=== PATIENT | female | born 1955 | race Caucasian/White ===

== ENCOUNTER 2019-02-08 16:40 | Observation (INO) | payer OTHER ==
[~2019-02-08] VITALS: Ht 162.6 cm; Wt 88.6 kg
--- NOTE | ~2019-02-08 | HEMODYNAMI ---
PATIENT:CHASE LOBO MEDICAL RECORD: [id number] : 55 LOCATION:[facility] D.[id number] [facility]# [id number] ADMISSION DATE: 02/08/19 Generatedon:02/09/201910:41 Patient name: CHASE LOBO Patient #: [id number] SSN: [id number] : 1955 Date of study: 02/09/2019 Page: Of Hemodynamic Procedure Report Patient Data Patient Demographics Procedure consent was obtained First Name: CHASE Gender: Female Last Name: YAMIL : 1955 Patient #: [id number] Age: 63 year(s) Race: SSN: [id number] Additional ID: [id number] Contact details [address]: [address] [place] [address] rd State: [place] City: [place] Zip code: [address] Past Medical History Allergies Allergen Reaction Date Comments Reported Other allergy 02/09/2019 Madi HERNÁNDEZ Admission Admission Data Admission Date: 02/08/2019 Admission Time: 17:58 Arrival Date: 02/09/2019 Arrival Time: 0:00 Admit Source: Other Insurance Payor: Private Room #: [id number] health insurance [facility] #: [id number] Height (in.): 64 BSA: 1.94 (m2) Height (cm.): 162.56 BMI: 33.54 (kg/m2) Weight (lbs.): 195.4 Weight (kg.): 88.63 Lab Results Lab Result Date: 02/09/2019 Lab Result Time: 0:00 Biochemistry Name Units Result Min Max BUN mg/dl 12 --(-*--)-- 7 18 Creatinine mg/dl 0.9 --(-*--)-- 0.6 1.3 eGFR ml/min 67.00728 *-(----)-- 90 120 NONAFRICAN CBC Name Units Result Min Max Hemoglobin g/dl 14.7 --(-*--)-- 13.5 17.5 Procedure Procedure Types Cath Procedure Diagnostic Procedure C [facility] w/Coronaries Sedation Charges Moderate Sedation up to 15 minutes PCI Procedure Coronary Stent Coronary Stent Initial Procedure Description Procedure Date Procedure Date: 02/09/2019 Procedure Start Time: 10:16 Procedure End Time: 10:40 Procedure Staff Name Function Austin Kenny MD Performing Physician Kenisha Steel RT Monitor Saad Ocasio RN Nurse Nneka Sanchez RT Scrub Procedure Data Cath Procedure Fluoroscopy Diagnostic fluoroscopy Total fluoroscopy Time: 7.3 time: 7.3 min min Diagnostic fluoroscopy Total fluoroscopy dose: 688 dose: 688 mGy mGy Contrast Material Contrast Material Type Amount (ml) Isovue 300 149 Entry Location Entry Primary Successful Side Size Upsize Upsize Entry Closure Jane ccessful Closure Location (Fr) 1 (Fr) 2 (Fr) Remarks Device Remarks Radial Right 6 Fr Mechanical artery Short Compression Estimated blood loss: 5 ml Diagnostic catheters Device Type Used For End Catheter Placement DIAGNOSTIC Kerrick 110cm 5 Multi-vessel Fr catheter ([id number]) Angiography Procedure Complications No complications Procedure Medications Medication Administration Route Dosage 0.9% NaCl I.V. 100 ml/hr Oxygen etCO2 Nasal cannula 2 l/min Heparin Flush Bag added to field 2 bags (1000units/500ml NS) Lidocaine 2% added to field 20 Radial Cocktail added to field 1 syringe (Verapamil 2mg/Nitro 400mcg/Heparin 1500units) Versed I.V. 2 mg Fentanyl I.V. 100 mcg Radial Cocktail I.A. 1 syringe (Verapamil 2mg/Nitro 400mcg/Heparin 1500units) Heparin Bolus I.V. 4000 units Fentanyl I.V. 50 mcg Plavix P.O. 75 mg Versed I.V. 1 mg Hemodynamics Rest BSA: 1.94 (m2) HGB: 14.7 (g/dl) O2 Consumption: Estimated: 187.26 (ml/min) O2 Co nsumption indexed: Estimated:96.53 (ml/min/m) Heart Rate: 77 (bpm) Pressure Samples Time Site Value (mmHg) Purpose Heart Use Rate(bpm) 10:20 LV 123/4,7 Snapshot 85 Snapshots Pre Cath Intra NCS Post Cath Vital Signs Time Heart Resp SPO2 etCO2 NIBP (mmHg) Rhythm Pain Status Sedation Rate (ipm) (%) (mmHg) Level (bpm) 9:51:18 75 13 100 35.9 154/84(133) NSR 5 (11) , 10(A) Very distressing 9:55:38 71 11 94 41.1 145/79(119) NSR 5 (11) , 10(A) Very distressing 9:59:54 71 11 95 44.1 140/82(112) NSR 5 (11) , 10(A) Very distressing 10:04:04 73 12 94 23.9 136/77(106) NSR 5 (11) , 10(A) Very distressing 10:08:22 69 12 97 33.7 150/66(106) NSR 5 (11) , 10(A) Very distressing 10:12:42 71 12 96 41.1 148/71(98) NSR 5 (11) , 10(A) Very distressing 10:16:56 67 12 94 17.9 121/74(100) NSR 0 (11) , No 9(A) pain 10:21:59 72 12 93 0.7 134/64(89) NSR 0 (11) , No 9(A) pain 10:27:09 69 18 94 26.9 132/72(110) NSR 5 (11) , 10(A) Very distressing 10:31:23 81 10 95 44.8 134/77(117) NSR 5 (11) , 10(A) Very distressing 10:35:37 82 15 84 42.6 139/73(105) NSR 5 (11) , 10(A) Very distressing 10:39:55 79 13 96 29.2 142/71(93) NSR 5 (11) , 10(A) Very distressing Medications Time Medication Route Dose Verified Delivered Reason Not es Effectiveness by by 9:53:40 0.9% NaCl I.V. 100 Saad Saad Per physician ml/hr Amarjit Ocasio RN RN 9:53:50 Oxygen etCO2 2 l/min Saad Saad for low 02 sats Nasal Anabeligan Amarjit cannula RN RN 9:54:11 Heparin Flush added 2 bags Saad Saad used for Bag to Amarjit Ocasio procedure (1000units/500ml RN RN NS) 9:54:22 Lidocaine 2% added 20ml Saad Saad for local to vial Lorigan Anabeligan anesthetic field GRIFFIN RN 9:54:34 Radial Cocktail added 1 Saad Saad used for (Verapamil to syringe Amarjit Ocasio procedure 2mg/Nitro field RN RN 400mcg/Heparin 1500units) 10:14:28 Versed I.V. 2 mg Saad Saad for sedation Amarjit Ocasio RN RN 10:14:38 Fentanyl I.V. 100 mcg Saad Saad for sedation Amarjit Ocasio RN RN 10:19:06 Radial Cocktail I.A. 1 Saad Austin for (Verapamil syringe Amarjit Kenny MD vasodilation 2mg/Nitro RN 400mcg/Heparin 1500units) 10:19:24 Versed I.V. 1 mg Saad Saad for sedation Amarjit Ocasio RN RN 10:27:51 Heparin Bolus I.V. 4000 Saad Saad for units Amarjit Ocasio anticoagulation RN RN 10:37:05 Fentanyl I.V. 50 mcg Saad Saad for chest pain Amarjit Ocasio RN RN 10:37:18 Plavix P.O. 75 mg Saad Saad for Amarjit Ocasio antiplatelet RN RN therapy Procedure Log Time Note 9:21:01 Diagnostic Cath Status : Elective 9:24:27 Informed consent obtained and on chart 9:40:30 Arrival Date: 02/09/2019 12:00:00 AM 9:41:13 Admit Source: Other 9:41:16 Insurance Payor : Private health insurance 9:41:31 Patient Height : 64 inches 9:41:37 Patient Weight : 195.4 lbs 9:42:43 Lab Result : Hemoglobin 14.7 g/dl 9:42:43 Lab Result : eGFR NONAFRICAN 67.43601 ml/min 9:42:43 Lab Result : BUN 12 mg/dl 9:42:43 Lab Result : Creatinine 0.9 mg/dl 9:43:12 Procedure Status Urgent Heart Cath (IP). 9:43:17 Saad Ocasio RN sent for patient. Start room use. 9:43:19 Time tracking: Regular hours (M-F 7:00 - 5:00) 9:43:23 Plan of Care:Hemodynamics will remain stable., Cardiac rhythm will remain stable., Comfort level will be maintained., Respiratory function will remain adequate., Patient/ family verbilizes understanding of procedure., Procedure tolerated without complication., Recovers from procedure without complications.. 9:43:48 Patient received from PCU to [facility] 3 Alert and oriented. Tansferred to table in Supine position. 9:43:58 Warm blankets applied, and mary hugger turned on for patient comfort. 9:43:58 Correct patient and procedure confirmed by team. 9:44:09 H&P Date Dictated: 02/08/2019 Within 30 days and on chart., H&P Addendum completed by physician on day of procedure. (MUST COMPLETE FOR ALL OUTPATIENTS). 9:44:11 Pre-procedure instructions explained to patient. 9:44:14 Family in patients room. 9:44:19 Patient NPO since Midnight. 9:44:37 Patient allergic to Other allergyPCN, Codeine 9:44:41 Is the patient allergic to Iodine/contrast media? No. 9:44:46 Was the patient premedicated? Yes 9:44:56 Is patient on blood thinner?Yes 9:45:00 ACC The patient was administered the following blood thiners within the last 24 hours: ACCAspirin, ACCPlavix 9:45:04 Patient diabetic? No. 9:45:11 Snore? Yes 9:45:13 Sleep apnea? No 9:45:25 Dentures? No ? 9:45:35 Patient pain scale 5/10 ?. 9:45:51 IV patent on arrival in right hand with 0.9% NaCl at KVO. 9:45:59 Lab results completed and on chart. 9:46:04 Right Radial & Right Groin area was prepped with chlora-prep and draped in sterile fashion 9:46:06 Alarms reviewed by R. N. 9:46:07 Sharps counted by scrub and verified by R.N. 9:46:12 Physician paged 9:46:41 Pre procedure: right dorsailis pedis pulse 2+ Normal; easily identifiable; not easily obliterated 9:46:46 Pre procedure: left dorsailis pedis pulse 2+ Normal; easily identifiable; not easily obliterated 9:48:54 Use device set Radial Dx or PCI 9:49:07 ECG and BP/O2 sat monitors applied to patient. 9:49:09 Vital chart was started 9:49:12 Baseline sample Acquired. 9:49:18 Rhythm: sinus rhythm 9:49:22 Full Disclosure recording started 9:53:40 0.9% NaCl 100 ml/hr I.V. was administered by Saad Ocasio RN; Per physician; 9:53:50 Oxygen 2 l/min etCO2 Nasal cannula was administered by Saad Ocasio RN; for low 02 sats; 9:54:11 Heparin Flush Bag (1000units/500ml NS) 2 bags added to field was administered by Saad Ocasio RN; used for procedure; 9:54:22 Lidocaine 2% 20ml vial added to field was administered by Saad Ocasio RN; for local anesthetic; 9:54:34 Radial Cocktail (Verapamil 2mg/Nitro 400mcg/Heparin 1500units) 1 syringe added to field was administered by Saad Ocasio RN; used for procedure; 10:03:16 Physician arrived 10:03:17 --------ALL STOP TIME OUT------ 10:03:17 Final Timeout: patient, procedure, and site verified with staff and physician. All members of the team are in agreement. 10:03:19 Right Radial & Right Groin site verified by team. 10:03:22 Fire Safety Assessment: A--An alcohol-based skin anteseptic being used preoperatively., C--Open oxygen or nitrous oxide is being used., D--An ESU, laser, or fiber-optic light is being used. 10:03:25 Physical assessment completed. ASA score P 2 - A patient with mild systemic disease as per Austin Kenny MD. 10:03:38 2) 60-89 Mildly reduced kidney function, and other findings (as for stage 1) point to kidney disease. 10:04:02 Maximum allowable contrast dose (3.7 X eGFR X 0.75)185 ml. 10:04:06 Sedation plan: IV Moderate Sedation Medication:Versed, Fentanyl 10:04:17 ACIST Syringe (54511) opened to sterile field. 10:04:18 Medline Cath Pack ([id number]) opened to sterile field. 10:04:18 Bag Decanter () opened to sterile field. 10:04:19 ACIST Hand Control (47478) opened to sterile field. 10:04:19 ACIST Manifold (82237) opened to sterile field. 10:04:19 Tegaderm 4 x 4 (1626W) opened to sterile field. 10:04:20 MBrace Wrist Support ([id number]) opened to sterile field. 10:04:24 SHEATH 6FR RAIN (8296237) opened to sterile field. 10:04:25 EMERALD Guide Wire (502-970) opened to sterile field. 10:12:44 Zero performed for pressure channel P1 10:14:28 Versed 2 mg I.V. was administered by Saad Ocasio RN; for sedation; 10:14:38 Fentanyl 100 mcg I.V. was administered by Saad Ocasio RN; for sedation; 10:16:46 Procedure started. 10:16:53 Local anesthetic to right radial artery with Lidocaine 2% by Austin Kenny MD.INITIAL ACCESS ONLY 10:18:48 A 6 Fr Short sheath was inserted into the Right Radial artery 10:18:56 A DIAGNOSTIC Kerrick 110cm 5 Fr catheter (859127) was advanced over the wire and used for Multi-vessel Angiography. 10:19:06 Radial Cocktail (Verapamil 2mg/Nitro 400mcg/Heparin 1500units) 1 syringe I.A. was administered by Austin Kenny MD; for vasodilation; 10:19:24 Versed 1 mg I.V. was administered by Saad Ocasio RN; for sedation; 10:20:53 LV hemodynamics recorded. 10:20:55 LV gram done using VILLANUEVA 10:20:57 Injector settings: Ml/sec: 5, Volume: 15, 10:21:03 EF : 60 % 10:22:26 LCA angiography performed. 10:22:30 Injector settings: Ml/sec: 3, Volume: 6, 10:23:34 RCA angiography performed. 10:23:42 Injector settings: Ml/sec: 3, Volume: 6, 10:23:45 ACCDominant side:Right 10:24:07 Catheter removed. 10:24:32 GUIDE 6FR XBLAD 3.5 catheter ([id number]) opened to sterile field. 10:24:32 INFLATOR Merit BasixCompak (IL9395) opened to sterile field. 10:24:33 CHOICE PT Floppy J 300cm guide wire ([id number]) opened to sterile field. 10:24:40 Proceeding to intervention. 10:24:46 6 Fr xblad 3.5 guide catheter was inserted over the wire 10:24:55 choice pt floppy wire advanced. 10:27:51 Heparin Bolus 4000 units I.V. was administered by Saad Ocasio RN; for anticoagulation; 10:27:52 Pre PCI Site: [place] mCirc has 90% stenosis. 10:27:52 ACC Pre-intervention ABAD Flow is 3. 10:29:53 Inflate balloon Inflation number: 1 A EMERGE OTW 2.0 x 12 balloon ([id number]) was prepped and advanced across the Mid CX 90, then inflated to 7 FREDY for 0:10 (min:sec) . 10:30:17 Inflation number: 2 The EMERGE OTW 2.0 x 12 balloon ([id number]) was reinflated across the Mid CX , to 7 FREDY for 0:10 (min:sec) . 10:31:33 Balloon removed over the wire. 10:34:24 Place stent Inflation Number: 3 A LUCIO RX 2.0 x 12 stent ([id number]) was prepped and advanced across the Mid CX 90. The stent was deployed at 11 FREDY for 0:10 (min:sec) . 10:36:23 Stent catheter was removed intact over wire. 10:36:23 Wire removed. 10:36:24 Guide catheter removed. 10:36:29 ACC Post-intervention ABAD Flow is 3. 10:36:36 Post PCI Site: [place] mCirc has 0% stenosis. 10:36:48 Sheath removed intact; hemostasis achieved with Mechanical Compression to the Right Radial artery. 10:36:54 TR BAND Standard ([id number]) opened to sterile field. 10:37:00 Procedure ended.(Physican Out) 10:37:05 Fentanyl 50 mcg I.V. was administered by Saad Ocasio RN; for chest pain; 10:37:18 Plavix 75 mg P.O. was administered by Saad Ocasio RN; for antiplatelet therapy; 10:37:40 Fluoroscopy time 07.30 minutes. 10:37:46 Fluoroscopy dose: 688 mGy 10:37:46 Flurop Dose total: 688 10:38:56 Dose Area Product 5948.42 mGy/cm. 10:39:16 Contrast amount:Isovue 300 149ml. 10:39:18 Sharps counted by scrub and verified by R.N. 10:39:21 [place] band inflated with 10cc of air. 10:39:23 Insertion/operative site no bleeding no hematoma. 10:39:29 Post right radial artery:stable 10:39:31 Post Procedure Pulses reassessed and unchanged 10:39:34 Post procedure rhythm: unchanged. 10:39:36 Estimated blood loss: 5 ml 10:39:38 Post procedure instruction explained to patient.Patient verbalizes understanding. 10:39:38 Patient needs reinforcement of post procedure teaching. 10:39:52 Procedure type changed to Cath procedure, Diagnostic procedure, LHC, LHC w/Coronaries, Sedation Charges, Moderate Sedation up to 15 minutes, PCI procedure, Coronary Stent, Coronary Stent Initial 10:39:54 Procedure and supply charges have been captured, reviewed, submitted and are correct. 10:39:59 Procedure Complication : No complications 10:40:01 Vital chart was stopped 10:40:02 See physician's report for complete and final results. 10:40:04 Report given to Pre/Post Procedure Room. 10:40:07 Procedure ended. 10:40:07 Full Disclosure recording stopped 10:40:14 Patient transfered to Pre/Post Procedure Room with Stretcher. 10:40:19 ACC-PCI Only Patient was given prescriptions, or instructed by Austin Kenny MD to start/continue the following medications upon discharge: Plavix 10:40:21 End room use (Document Last) Intervention Summary Intervention Notes Time ActionType Lesion and Equipment Used Action# Pressure Duration Attributes 10:29:53 Inflate Mid CX EMERGE OTW 2.0 1 7 00:10 balloon x 12 balloon ([id number]) 10:30:17 Reinflate Mid CX EMERGE OTW 2.0 2 7 00:10 balloon x 12 balloon ([id number]) 10:34:24 Place stent Mid CX LUCIO RX 2.0 x 3 11 00:10 12 stent ([id number]) Device Usage Item Name Manufacture Quantity Catalog Number Hospital Part Current M inimal Lot# / Charge Number Stock Stock Serial# Code ACIST Syringe Acist 1 85854 278178 021031 834983 2 0 (76276) Medical Dgimed Ortho Inc Medline Cath Medline 1 [id number] 354054 09380 928534 5 Pack ([id number]) Bag Decanter Microtek 1 741227 84088 546430 5 (2002S) Medical Inc. ACIST Hand Acist 1 93480 418053 167168 397245 5 Control Medical (46173) Systems Inc ACIST Manifold Acist 1 25617 057123 510974 777011 5 (33010) Medical Systems Inc Tegaderm 4 x 4 3M 1 1626W 793997 922565 052882 5 (1626W) MBrace Wrist Advanced 1 140-0250-00 314233 44417 086304 5 Support Vascular (186327846) Dynamics SHEATH 6FR Cardinal 1 1580240 628241 8021548 966523 5 RAIN (1539368) Health EMERALD Guide Cardinal 1 502-455 502628 687644 492869 5 Wire (502-638) Health DIAGNOSTIC Terumo 1 405013 847178 059737 116280 5 Kerrick 110cm 5 Fr catheter (363258) GUIDE 6FR Cardinal 1 04501377 259315 524568 100607 1 0 XBLAD 3.5 Health catheter (11531285) INFLATOR Merit Merit 1 NM1969 316870 407354 336132 1 5 Firebase (LF6033) CHOICE PT Leon 1 [id number] 896005 603969 469435 5 Floppy J 300cm Scientific guide wire (4602496L1) EMERGE OTW 2.0 Leon 1 [id number] 971972 404850 138635 5 13688869 x 12 balloon Scientific ([id number]) LUCIO RX 2.0 x Medtronic 1 [id number] 664456 2739660 879856 5 [id number] 12 stent ([id number]) TR BAND Terumo 1 [id number] 970453 865952 332552 4 0 Standard (LLE16III) Signature Audit [place] Stage Time Signature Unsigned Intra-Procedure 02/09/2019 Kenisha Steel 10:41:10 AM RT(R) Signatures Performing Physician : Signature : Austin Kenny MD Date : Time : Monitor : Kenisha Steel RT Signature : Date : Time : Nurse : Saad Lorigan Signature : RN Date : Time : [place] [id number] [place] [address]
[2019-02-08] MEDS ORDERED: LISINOPRIL2.5 MG (16:45)
[2019-02-08 17:16] LABS: BASOPHILS 1.1 % (0-2); HEMATOCRIT 42.1 % (36.0-48.0); HEMOGLOBIN 14.7 g/dL (12-16); IMMATURE GRANULOCYTES 0.2 % (0-5); LYMPHOCYTES 46.4 % (15-50); MCH 32.3 pg (26.0-34.0); MCHC 34.9 g/dL (31.0-37.0); MCV 92.5 fL (80.0-100.0); MEAN PLATELET VOLUME 10.3 fL (7.4-10.4); MONOCYTES 7.5 % (2-11); NEUTROPHILS 41.8 % (40-80); PLATELET COUNT 219 10x3/uL (130-400); RBC 4.55 10x6/uL (4.00-5.40); RDW 13.4 % (11.5-14.5); WBC 6.7 10x3/uL (4.8-10.8)
[2019-02-08 17:38] LABS: ALBUMIN 4.1 g/dL (3.4-5.0); ALKALINE PHOSPHATASE 50 U/L (46-116); ALT (SGPT) 38 U/L (10-68); BILIRUBIN - TOTAL 0.69 mg/dL (0.2-1.3); CALC OSMOLALITY 279 mosm/kg (275-300); CALCIUM 9.6 mg/dL (8.5-10.1); CARBON DIOXIDE 27.9 mmol/L (21.0-32.0); CHLORIDE - SERUM 103 mmol/L (98-107); CREATININE - SERUM 0.9 mg/dL (0.6-1.3); GLUCOSE 109 mg/dL (74-106); POTASSIUM - SERUM 4.4 mmol/L (3.5-5.1); PROTEIN - SERUM 7.4 g/dL (6.4-8.2); SODIUM 140 mmol/L (136-145); UREA NITROGEN 12 mg/dL (7-18); eGFR NON AFRICAN AMERICAN 67 mL/min (90-120)
[2019-02-08 17:51] LABS: CKMB 2.6 U/L (0.0-3.6); CREATINE KINASE 287 UL (21-215); PRO BNP 90 pg/mL (0-125)
[2019-02-08 18:02] LABS: TROPONIN-I < 0.017 ng/mL (0.000-0.060)
--- NOTE | 2019-02-08 18:58 | NUR ---
REPORT CALLED TO [facility] AT 1840.
--- NOTE | 2019-02-08 19:30 | NUR ---
PATIENT ARRIVED ON UNIT FROM ER. PATIENT IS ALERT AND ORIENTED. RESPIRATIONS ARE EVEN AND UNLABORED. NO S/S OF DISTRESS. NO C/O PAIN. CALL LIGHT WITHIN REACH. DENIES NEEDS. WILL CPOC.
[2019-02-08] MEDS ORDERED: ESTRACE 0.5 MG0.5 MG PO (21:20)
[2019-02-08] MEDS ORDERED: AMBIEN5 MG PO (21:21)
[2019-02-08] MEDS ORDERED: OMEPRAZOLE20 M1 PO (21:21)
[2019-02-08 21:27] VITALS: BP 132/60; Ht 162.6 cm; Wt 88.6 kg
[2019-02-09 04:00] VITALS: BP 90/46
--- NOTE | 2019-02-09 07:21 | NUR ---
REPORT RECEIVED. WILL CONTINUE WITH POC. PT CURRENTLY LYING SEMI FOWLERS. CALL LIGHT W/I REACH. PT IS AAO AND UP AD RNO. RR EVEN AND UNLABORED ON RA. R.HAND PIV IS SALINE LOCKED. PT IS NPO FOR STRESS TEST. PT DENIES ANY NEEDS. NO S/S OF DISTRESS NOTED. WILL CTM.
[2019-02-09 09:29] VITALS: BP 101/55
--- NOTE | 2019-02-09 09:38 | NUR ---
PREOP MEDICATIONS ADMINISTERED PER TRAINING INSTRUCTOR REQUEST. PT TRANSFERED TO TRAINING INSTRUCTOR. WILL CTM.
--- NOTE | 2019-02-09 10:50 | NUR ---
PT ARRIVED BY STRETCHER. PLACED ON MONITORS. ASSESSMENT COMPLETED. VSS. CALL LIGHT WITHIN REACH. FAMILY AT BEDSIDE.
[2019-02-09] MEDS ORDERED: PLAVIX75 MG PO (11:00)
[2019-02-09] MEDS ORDERED: BAYER CHEWABLE81 MG PO (11:00)
--- NOTE | 2019-02-09 11:05 | NUR ---
RIGHT WRIST BAND IN PLACE. NO BLEEDING/HEMATOMA NOTED. CAP REFILL < 3 SECS TO RIGHT HAND. VSS. CALL LIGHT WITHIN REACH. PT TOLERATING SIPS OF WATER. DENIES NAUSEA.
--- NOTE | 2019-02-09 11:10 | OP ---
PATIENT NAME: CHASE LOBO MEDICAL RECORD: [id number] :55 LOCATION:[facility] ADMISSION DATE:02/08/19 SURGEON: ZO MCCANN MD DATE OF OPERATION: 02/09/2019 PROCEDURES: 1. PTCA stent left circumflex. 2. Left heart catheterization. 3. Selective coronary angiography. 4. Left ventriculogram. INDICATION: Unstable angina and coronary artery disease. PROCEDURE IN DETAIL: After informed consent was obtained and after a detailed description of risks, benefits as well as alternative therapies, the patient elected to proceed with angiogram and angioplasty. The right radial area was prepped and draped in normal sterile fashion. Right radial artery was cannulated via modified Seldinger technique with placement of 6-Chinese sheath. All catheters exchanged through this sheath. FINDINGS: Left ventriculogram was performed in standard 30-degree VILLANUEVA view, reveals good cardiac wall motion throughout all segments. Overall ejection fraction estimated at 55%. SELECTIVE CORONARY ANGIOGRAPHY: 1. Left main showed no significant angiographic disease. 2. Left anterior descending has moderate irregularities, but no flow-limiting stenosis. 3. The left circumflex is a small vessel, but there is a 90% to 95% stenosis in the mid distal vessel. 4. Right coronary artery has mild irregularities, but no flow-limiting stenosis. PTCA STENT OF THE CIRCUMFLEX: The stent used was a 2.0 x 12 mm [place]. Result was 0% residual stenosis. OVERALL IMPRESSION: Successful percutaneous transluminal coronary angioplasty stent of the left circumflex going from 90% to 95% initial stenosis to 0% residual. TRANSINT:[id number] Voice Confirmation ID: [id number] DOCUMENT ID: [id number] ZO MCCANN MD at 1110 CC: [id number] DICTATION DATE: 02/09/19 1040 COOK FRUIT: 02/09/19 1048 [place] [address]
--- NOTE | 2019-02-09 11:10 | HP ---
PATIENT: CHASE PAYTON MEDICAL RECORD: [id number] ACCOUNT: [id number] LOCATION:[facility] : 55 ADMISSION DATE: 02/08/19 PCP: No PCP HISTORY AND PHYSICAL EXAMINATION DIAGNOSES: 1. Unstable angina. 2. Hypertension. HISTORY OF PRESENT ILLNESS: Mrs. Payton has no history of ischemic heart disease. She has a history of hypertension for which she is on lisinopril. For the past 3 weeks, she has been having increasing episodes of chest pain, chest discomfort compatible with angina; however, over the past 24 hours, it has turned into class IV angina with rest pain. It is a typical anginal discomfort with dull aching heavy sensation across the anterior chest, some radiation to her jaw. Her EKG; however, is with no acute ST-T abnormalities. She does continue to have the discomfort. PHYSICAL EXAMINATION: CONSTITUTIONAL/GENERAL APPEARANCE: Well nourished, well developed, appears stated age. EYES: Lids and conjunctivae noninjected. No discharge. No pallor. ENT: Lips within normal limit. No cyanosis. No pallor. NECK: Carotid arteries, bilateral normal upstroke. No bruits. No thrills. No jugular venous pressure or distention. CERVICAL LYMPH NODES: Nontender. Nonenlarged. THYROID: Not enlarged. No nodules. CARDIOVASCULAR: Precordial exam, nondisplaced. No heaves or pericardial thrills. Rate and rhythm, regular. Heart sounds, normal S1, normal S2. No S3, no gallop, no rub. Systolic murmur, not heard. Diastolic murmur, not heard. RESPIRATORY: Respiratory effort, unlabored. Normal curvature. No thoracic deformity. No chest wall tenderness. Percussion, resonant. Auscultation, clear. No wheezes, no rales, no rhonchi. ABDOMEN: Soft, nondistended, nontender. No abdominal pain, no vomiting and normal appetite. MUSCULOSKELETAL: No joint tenderness, normal gait, normal tone. SKIN: Warm and dry. OVERALL IMPRESSION: Chest pain compatible with unstable angina. She is hypertensive 164/82 with pulse of 70. At this time, we will add long-acting nitrates as well as calcium channel bairon to lower her blood pressure. There is no need for beta blockers, heart rate is already 60s and 70s. We will set her up for risk stratification with stress testing, Cardiolite imaging; however, if she continues to have the chest pain in an escalating fashion at rest, may change that to proceed with coronary angiography depending upon her pain with the medications. TRANSINT:[id number] Voice Confirmation ID: [id number] DOCUMENT ID: [id number] HISTORY AND PHYSICAL [id number] CHASE PAYTON JEFFREY MD at 1110 CC: [id number] DICTATION DATE: 02/08/191743 HEAVY EQUIPMENT MECHANIC: 02/08/19 1816 ADM IN [facility] [address] [id number]
--- NOTE | 2019-02-09 11:35 | NUR ---
RIGHT RADIAL TR BAND IN PLACE. NO BLEEDING/HEMATOMA NOTED. VSS. CALL LIGHT WITHIN REACH. NO NEEDS AT THIS TIME.
--- NOTE | 2019-02-09 12:03 | NUR ---
PT RESTING COMFORTABLY. VSS. RIGHT RADIAL TR BAND IN PLACE. NO BLEEDING/HEMATOMA NOTED. DENIES PAIN/NAUSEA. FAMILY AT BEDSIDE.
--- NOTE | 2019-02-09 12:31 | NUR ---
HEAD OF BED INC TO 30 DEGREES. TOLERATED WELL. PT MORE ALERT. VSS. RIGHT RADIAL TR BAND IN PLACE. NO BLEEDING/HEMATOMA NOTED. PT SET UP WITH SANDWICH TRAY AND DRINK. NO OTHER NEEDS AT THIS TIME. CALL LIGHT WITHIN REACH.
--- NOTE | 2019-02-09 13:03 | NUR ---
PT SITTING UP IN BED. VSS. RIGHT RADIAL TR BAND IN PLACE. NO BLEEDING/HEMATOMA NOTED. CALL LIGHT WITHIN REACH. NO NEEDS AT THIS TIME.
--- NOTE | 2019-02-09 13:47 | NUR ---
NO BLEEDING/HEMATOMA NOTED TO RIGHT WRIST TR BAND
--- NOTE | 2019-02-09 13:47 | NUR ---
4cc OF AIR REMOVED FROM TR BAND. TOLERATED WELL. VSS. CALL LIGHT WITHIN REACH. FAMILY AT BEDSIDE.
--- NOTE | 2019-02-09 13:57 | NUR ---
4cc OF AIR REMOVED FROM TR BAND. NO BLEEDING/HEMATOMA NOTED. CALL LIGHT WITHIN REACH. FAMILY AT BEDSIDE.
--- NOTE | 2019-02-09 14:15 | NUR ---
TR BAND REMOVED. DRESSING APPLIED. NO BLEEDING/HEMATOMA NOTED. PIV D/C'D WITH CATH TIP INTACT. PT INSTRUCTED TO GET DRESSED. FAMILY AT BEDSIDE TO ASSIST.
--- NOTE | 2019-02-09 14:20 | NUR ---
DISCUSSED DISCHAGE INSTRUCTIONS WITH PT AND PT'S FAMILY. THEY VOICED UNDERSTANDING.
--- NOTE | 2019-02-09 14:30 | NUR ---
RIGHT WRIST DRESSING C/D/I. NO S/S OF HEMATOMA NOTED. PT AMBULATED TO RESTROOM. VOIDED WITHOUT DIFFICULTY. TAKEN TO VEHICLE BY WHEELCHAIR. NO S/S OF DISTRESS NOTED. ALL BELONGINGS AND PAPERWORK IN HAND.
--- NOTE | 2019-02-12 10:47 | DS ---
PATIENT:CHASE PAYTON :55 MEDICAL RECORD: [id number] DISCHARGE SUMMARY ADMISSION DATE: 02/08/19 DISCHARGE DATE: 02/09/19 DISCHARGE DIAGNOSES: 1. Unstable angina. 2. Coronary artery disease. 3. Percutaneous transluminal coronary angioplasty stent of left circumflex this admission. HOSPITAL COURSE: Mrs. Payton presents with unstable anginal symptomatology, continued to have anginal pain despite maximal medical therapy, underwent cardiac catheterization revealing 90% to 95% stenosis of the left circumflex, underwent successful PTCA stent of the left circumflex. She had no further anginal chest discomfort, discharged home with the addition of aspirin and Plavix to her medical regimen. TRANSINT:[id number] Voice Confirmation ID: [id number] DOCUMENT ID: [id number] ZO MCCANN MD at 1047 CC: [id number] DICTATION DATE: 02/09/19 1038 TRANSPORTATION REFRIGERATION TECHNICIAN: 02/09/19 2348 DIS IN 02/09/19 [facility] [address] [place] [address]
== END 2019-02-09 14:30 | disposition home or self-care (01) ==
LOC: D.ER 16:40 → D.M2 17:58 → OBSVTIME 18:15 → D.CLR 02-09 10:58
PROVIDERS: Emergency Medicine; ADMIT Internal Medicine Interventional Cardiology; ATTEND Internal Medicine Interventional Cardiology
DX: I25.110 Atherosclerotic heart disease of native coronary artery with unstable angina pectoris (principal); I10 Essential (primary) hypertension

== ENCOUNTER 2019-05-31 08:41 | Outpatient (CLI) | payer OTHER ==
[~2019-05-31] VITALS: Ht 162.6 cm; Wt 90.9 kg
--- NOTE | ~2019-05-31 | HEMODYNAMI ---
PATIENT:CHASE LOBO MEDICAL RECORD: [id number] : 55 LOCATION:[facility] ADMISSION DATE: 05/31/19 Generatedon:05/31/201911:55 Patient name: CHASE LOBO Patient #: [id number] SSN: [id number] : 1955 Date of study: 05/31/2019 Page: Of Hemodynamic Procedure Report Patient Data Patient Demographics Procedure consent was obtained First Name: CHASE Gender: Female Last Name: YAMIL : 1955 Patient #: [id number] Age: 63 year(s) Race: SSN: [id number] Additional ID: [id number] Contact details Address: [address] [place] [address] rd State: [place] City: [place] Zip code: [address] Past Medical History Allergies Allergen Reaction Date Comments Reported Other allergy 02/09/2019 PCN, Codeine Other allergy 05/31/2019 PCN, CODEINE Admission Admission Data Admission Date: 05/31/2019 Admission Time: 8:41 Arrival Date: 05/31/2019 Arrival Time: 0:00 Admit Source: Emergency department Height (in.): 64 BSA: 1.96 (m2) Height (cm.): 162.56 BMI: 34.44 (kg/m2) Weight (lbs.): 200.62 Weight (kg.): 91 Lab Results Lab Result Date: 05/31/2019 Lab Result Time: 0:00 Biochemistry Name Units Result Min Max BUN mg/dl 12 --(-*--)-- 7 18 Creatinine mg/dl 1 --(--*-)-- 0.6 1.3 eGFR ml/min 59 *-(----)-- 90 120 NONAFRICAN CBC Name Units Result Min Max Hematocrit % 41.8 -*(----)-- 42 54 Hemoglobin g/dl 14.2 --(*---)-- 13.5 17.5 Procedure Procedure Types Cath Procedure Diagnostic Procedure [facility] w/[facility] Procedure Description Procedure Date Procedure Date: 05/31/2019 Procedure Start Time: 11:26 Procedure End Time: 11:46 Procedure Staff Name Function Zeinab Zuleta RN Nurse Austin Kenny MD Performing Physician Zohra Perez RT Scrub Xin Mcfarland RT Scrub Claudio Andrews RT Monitor Procedure Data Cath Procedure Fluoroscopy Diagnostic fluoroscopy Total fluoroscopy Time: 1.1 time: 1.1 min min Diagnostic fluoroscopy Total fluoroscopy dose: 373 dose: 373 mGy mGy Contrast Material Contrast Material Type Amount (ml) Isovue 370 53 Entry Location Entry Primary Successful Side Size Upsize Upsize Entry Closure Succes sful Closure Location (Fr) 1 (Fr) 2 (Fr) Remarks Device Remarks Femoral Right 5 Fr Exoseal artery Diagnostic catheters Device Type Used For End Catheter Placement MULTIPACK Pigtail 5 Fr LV Angiography catheter MULTIPACK JL 4.0 5Fr Left Coronary catheter Angiography MULTIPACK 3DRC 5Fr Right Coronary catheter Angiography Procedure Complications No complications Procedure Medications Medication Administration Route Dosage Oxygen etCO2 Nasal cannula 2 l/min Lidocaine 2% added to field 20 Heparin Flush Bag added to field 2 bags (1000units/500ml NS) Benadryl I.V. 50 mg 0.9% NaCl I.V. 100 ml/hr Versed I.V. 1 mg Fentanyl I.V. 50 mcg Versed I.V. 1 mg Fentanyl I.V. 50 mcg Versed I.V. 1 mg Versed I.V. 0.5 mg Radial Cocktail added to field 1 syringe (Verapamil 2mg/Nitro 400mcg/Heparin 1500units) Hemodynamics Rest BSA: 1.96 (m2) HGB: 14.2 (g/dl) O2 Consumption: Estimated: 187.07 (ml/min) O2 Co nsumption indexed: Estimated:95.44 (ml/min/m) Heart Rate: 74 (bpm) Snapshots Pre Cath Intra NCS Post Cath Vital Signs Time Heart Resp SPO2 etCO2 NIBP (mmHg) Rhythm Pain Sedation Rate (ipm) (%) (mmHg) Status Level (bpm) 11:18:39 77 18 98 0 174/92(126) NSR 0 (11) 10(A) , No pain 11:22:59 72 13 96 0 149/79(108) NSR 0 (11) 10(A) , No pain 11:27:09 72 15 98 0 151/84(130) NSR 0 (11) 10(A) , No pain 11:31:19 73 14 96 27.6 144/82(111) NSR 0 (11) 9(A) , No pain 11:35:26 73 15 97 0 160/81(117) NSR 0 (11) 9(A) , No pain 11:39:36 73 17 99 0 154/93(140) NSR 0 (11) 9(A) , No pain 11:43:48 78 14 98 36.6 151/82(113) NSR 0 (11) 10(A) , No pain Medications Time Medication Route Dose Verified Delivered Reason Notes Effectiveness by by 11:13:19 Benadryl I.V. 50 mg Austin Arriola used for benadryl Zoya Zuleta RN procedure not able to be given in ER due to non patent IV, started new IV lt bicep. 11:21:05 Oxygen etCO2 2 l/min Austin Arriola used for Nasal Zoya Zuleta RN procedure cannula 11:21:12 Lidocaine 2% added 20ml Austin Austin for local to vial Zoya Kenny MD anesthetic field 11:21:20 Heparin Flush added 2 bags Austinmurali Avila used for Bag to Zoya Kenny MD procedure (1000units/500ml field NS) 11:22:10 0.9% NaCl I.V. 100 Austin Buffie Per benadryl ml/hr Zoya Zuleta RN physician not able to be given in ER due to non patent IV, started new IV lt bicep. 11:22:25 Versed I.V. 1 mg Austin Arriola for Zoya Zuleta RN sedation 11:22:33 Fentanyl I.V. 50 mcg Austin Jefferyie for Zoya Zuleta RN sedation 11:23:26 Radial Cocktail added 1 Austinmurali Arriola used for wasted, (Verapamil to syringe Zoya Zuleta RN procedure not used 2mg/Nitro field 400mcg/Hepari 11:27:08 Versed I.V. 1 mg Austin Jefferyie for Zoya Zuleta RN sedation 11:27:12 Fentanyl I.V. 50 mcg Austin Arriola for Zoya Zuleta RN sedation 11:38:51 Versed I.V. 1 mg Austin Arriola for Zoya Zuleta RN sedation 11:42:24 Versed I.V. 0.5 mg Austin Arriola for Zoya Zuleta RN sedation Procedure Log Time Note 10:49:51 Informed consent obtained and on chart 10:50:59 Procedure Status Urgent Heart Cath (IP). 10:51:02 Claudio Andrews RT(R) sent for patient. Start room use. 10:51:04 Time tracking: Regular hours (M-F 7:00 - 5:00) 10:51:08 Plan of Care:Hemodynamics will remain stable., Cardiac rhythm will remain stable., Comfort level will be maintained., Respiratory function will remain adequate., Patient/ family verbilizes understanding of procedure., Procedure tolerated without complication., Recovers from procedure without complications.. 10:51:14 H&P Date Dictated: 05/31/2019 New H&P dictated by physician.. 10:51:27 Patient allergic to Other allergyPCN, CODEINE 10:51:58 Lab Result : Hemoglobin 14.2 g/dl 10:51:58 Lab Result : Hematocrit 41.8 % 10:51:58 Lab Result : eGFR NONAFRICAN 59 ml/min 10:51:58 Lab Result : BUN 12 mg/dl 10:51:58 Lab Result : Creatinine 1 mg/dl 10:52:06 Patient Weight : 200.62 lbs 10:52:09 Patient Height : 64 inches 10:52:15 Arrival Date: 05/31/2019 12:00:00 AM 10:52:17 Admit Source: Emergency department 11:01:21 Patient received from ED to CCL 1 Alert and oriented. Tansferred to table in Supine position. 11:01:23 Correct patient and procedure confirmed by team. 11:01:23 Warm blankets applied, and mary hugger turned on for patient comfort. 11:01:24 ECG and BP/O2 sat monitors applied to patient. 11:04:37 Vital chart was started 11:04:38 Baseline sample Acquired. 11:04:42 Rhythm: sinus rhythm 11:04:44 Pre-op teaching completed and patient verbalized understanding. 11:04:44 Pre-procedure instructions explained to patient. 11:04:51 Family in waiting room. 11:04:54 Patient NPO since Midnight. 11:05:32 Is the patient allergic to Iodine/contrast media? No. 11:06:32 Maximum allowable contrast dose (3.7 X eGFR X 0.75)163.725 ml. 11:06:40 Risk of Mortality: 0.1 11:06:44 Risk of blood transfusion: 0.2 11:06:48 Risk of SHERRY: 0.8 11:06:59 Is patient on blood thinner?Yes 11:07:03 ACC The patient was administered the following blood thiners within the last 24 hours: ACCPlavix 11:07:07 Patient diabetic? No. 11:07:16 ----Pre-sedation anethsthesia assessment.---- 11:07:19 Previous problem with sedation/anesthesia? No ? 11:07:21 Snore? Yes 11:07:22 Sleep apnea? No 11:07:24 Deviated septum? No 11:07:26 Opens mouth fully? Yes 11:07:27 Sticks out tongue? Yes 11:07:30 Airway obstruction? No ? 11:07:32 Dentures? No ? 11:07:37 Pre procedure: right dorsailis pedis pulse 1+ Palpable, but thready & weak; easily obliterated 11:07:41 Patient pain scale 0/10 ?. 11:07:57 Right groin area was prepped with chlora-prep and draped in sterile fashion 11:07:58 Alarms reviewed by R. N. 11:07:59 Sharps counted by scrub and verified by R.N. 11:10:16 IV started by Zeinab Zuleta RN inLeft upper arm with a 22 gauge IV catheter with 0.9% NaCl at KVO. 11:13:19 Benadryl 50 mg I.V. was administered by Zeinab Zuleta RN; used for procedure; benadryl not able to be given in ER due to non patent IV, started new IV lt bicep. Verbal order read back and verified. 11:14:11 Physician arrived 11:14:12 --------ALL STOP TIME OUT------ 11:14:13 Final Timeout: patient, procedure, and site verified with staff and physician. All members of the team are in agreement. 11:14:14 Right groin site verified by team. 11:14:18 Fire Safety Assessment: A--An alcohol-based skin anteseptic being used preoperatively., C--Open oxygen or nitrous oxide is being used., D--An ESU, laser, or fiber-optic light is being used. 11:14:22 Physical assessment completed. ASA score P 2 - A patient with mild systemic disease as per Austin Kenny MD. 11:14:41 3a) 45-59 Moderately reduced kidney function. 11:14:45 Sedation plan: IV Moderate Sedation Medication:Versed, Fentanyl 11:21:05 Oxygen 2 l/min etCO2 Nasal cannula was administered by Zeinab Zuleta RN; used for procedure; Verbal order read back and verified. 11:21:12 Lidocaine 2% 20ml vial added to field was administered by Austin Kenny MD; for local anesthetic; Verbal order read back and verified. 11:21:20 Heparin Flush Bag (1000units/500ml NS) 2 bags added to field was administered by Austin Kenny MD; used for procedure; Verbal order read back and verified. 11:22:10 0.9% NaCl 100 ml/hr I.V. was administered by Zeinab Zuleta RN; Per physician; benadryl not able to be given in ER due to non patent IV, started new IV lt bicep. Verbal order read back and verified. 11:22:25 Versed 1 mg I.V. was administered by Zeinab Zuleta RN; for sedation; Verbal order read back and verified. 11:22:33 Fentanyl 50 mcg I.V. was administered by Zeinab Zuleta RN; for sedation; Verbal order read back and verified. 11:23:26 Radial Cocktail (Verapamil 2mg/Nitro 400mcg/Heparin 1500units) 1 syringe added to field was administered by Zeinab Zuleta RN; used for procedure; wasted, not used Verbal order read back and verified. 11:26:16 Use device set Radial Dx or PCI 11:26:17 ACIST Syringe (64191) opened to sterile field. 11:26:18 ACIST Hand Control (99151) opened to sterile field. 11:26:18 Bag Decanter () opened to sterile field. 11:26:18 Medline Cath Pack ([id number]) opened to sterile field. 11:26:19 Tegaderm 4 x 4 (1626W) opened to sterile field. 11:26:19 ACIST Manifold (03184) opened to sterile field. 11:26:21 MBrace Wrist Support (340379533) opened to sterile field. 11:26:22 EMERALD Guide Wire (343-171) opened to sterile field. 11:26:23 SHEATH 6FR RAIN (7658054) opened to sterile field. 11::37 Full Disclosure recording started 11::37 Procedure started. 11:26:55 Local anesthetic to right radial artery with Lidocaine 2% by Austin Kenny MD.INITIAL ACCESS ONLY 11:27:08 Versed 1 mg I.V. was administered by Zeinab Zuleta RN; for sedation; Verbal order read back and verified. 11:27:12 Fentanyl 50 mcg I.V. was administered by Zeinab Zuleta RN; for sedation; Verbal order read back and verified. 11:27:47 Baseline sample Acquired. 11:32:06 Local anesthetic to right radial artery with Lidocaine 2% by Austin Kenny MD.ADDITIONAL ACCESS 11:32:14 Use device set Femoral Dx 11:32:20 DIAGNOSTIC Multipack 5Fr catheter set ([id number]) opened to sterile field. 11:32:23 SHEATH 5FR [place] (LNT913) opened to sterile field. 11:33:11 A 5 Fr sheath was inserted into the Right Femoral artery 11:38:51 Versed 1 mg I.V. was administered by Zeinab Zuleta RN; for sedation; Verbal order read back and verified. 11:39:21 A MULTIPACK Pigtail 5 Fr catheter was advanced over the wire and used for LV Angiography. 11:39:27 LV angiography performed. 11:39:39 LV gram done using VILLANUEVA 11:40:04 EF : 55 % 11:40:07 Catheter removed. 11:40:21 A MULTIPACK JL 4.0 5Fr catheter was advanced over the wire and used for Left Coronary Angiography. 11:40:25 LCA angiography performed. 11:40:41 Catheter removed. 11:41:59 A MULTIPACK 3DRC 5Fr catheter was advanced over the wire and used for Right Coronary Angiography. 11:42:04 Catheter removed. 11:42:04 RCA angiography performed. 11:42:11 EXOSEAL 5Fr (EX500) opened to sterile field. 11:42:20 Sheath removed intact; hemostasis achieved with Exoseal to the Right Femoral artery. 11:42:23 Procedure ended.(Physican Out) 11:42:24 Versed 0.5 mg I.V. was administered by Zeinab Zuleta RN; for sedation; Verbal order read back and verified. 11:42:38 Fluoroscopy time 01.10 minutes. 11:42:53 Fluoroscopy dose: 373 mGy 11:42:53 Flurop Dose total: 373 11:43:01 Dose Area Product 15179 mGy/cm. 11:43:16 Contrast amount:Isovue 370 53ml. 11:43:19 Maximum allowable dose exceeded? No. 11:43:20 Sharps counted by scrub and verified by R.N. 11:43:22 Insertion/operative site no bleeding no hematoma. 11:43:25 Post-op/insertion site Right Femoral artery dressed using a 4 x 4 and Tegaderm. 11:43:28 Post right femoral artery:stable 11:43:32 Post Procedure Pulses reassessed and unchanged 11:43:35 Post procedure: right dorsailis pedis pulse 2+ Normal; easily identifiable; not easily obliterated. 11:43:38 Post procedure rhythm: sinus rhythm 11:43:40 Post procedure instruction explained to patient.Patient verbalizes understanding. 11:43:41 Procedure and supply charges have been captured, reviewed, submitted and are correct. 11:43:58 Procedure Complication : No complications 11:44:32 Vital chart was stopped 11:44:36 Operative report dictated upon procedure completion. 11:44:37 See physician's report for complete and final results. 11:46:39 Report given to Pre/Post Procedure Room. 11:46:44 Patient transfered to Pre/Post Procedure Room with Stretcher. 11:46:46 Full Disclosure recording stopped 11:46:46 Procedure ended. 11:46:49 End room use (Document Last) Device Usage Item Name Manufacture Quantity Catalog Hospital Part Current Minima l Lot# / Number Charge Number Stock Stock Serial# Code ACIST Acist 1 71693 [id number] [id number] [id number] 20 Syringe Medical (10392) Systems Inc Medline Medline 1 [id number] 721029 59769 741670 5 Cath Pack ([id number]) Bag Microtek 1 190021 97876 064400 5 Decanter Medical Inc. () ACIST Hand Acist 1 73121 167071 007076 800113 5 Control Medical (82805) Systems Inc ACIST Acist 1 92356 602282 059743 692481 5 Manifold Medical (82752) Systems Inc Tegaderm 4 3M 1 1626W 655433 509912 993155 5 x 4 (1626W) MBrace Advanced 1 140-0250-00 297776 09592 331715 5 Wrist Vascular Support Dynamics (144341615) EMERALD Cardinal 1 502-455 164463 628937 184801 5 Guide Wire Health (502-455) SHEATH 6FR Cardinal 1 [id number] 910382 4695890 009178 5 [facility] (4742962) DIAGNOSTIC Cardinal 1 XT9445 789369 95788 623041 30 [place] [employer] 5Fr catheter set (HA2413) SHEATH 5FR Terumo 1 TTG607 859066 285605 116700 5 [place] (OYC477) MULTIPACK Cardinal 1 763850 5 Pigtail 5 Health Fr catheter MULTIPACK Cardinal 1 003385 5 JL 4.0 5Fr [facility] catheter MULTIPACK Cardinal 1 233364 5 3DRC 5Fr RES Software catheter EXOSEAL 5Fr Cardinal 1 EX500 703046 695921 000460 10 (EX500) Health Signature Audit [place] Stage Time Signature Unsigned Intra-Procedure 05/31/2019 Zeinab Zuleta RN 11:47:54 AM Intra-Procedure 05/31/2019 Claudio Andrews RT(R) 11:48:22 AM Intra-Procedure 05/31/2019 Austin Kenny 11:55:40 [place] [address]
[~2019-05-31 08:41] MED LIST: AMBIEN5 MG PO; BAYER CHEWABLE81 MG PO; ESTRACE 0.5 MG0.5 MG PO; LISINOPRIL2.5 MG; OMEPRAZOLE20 M1 PO; PLAVIX75 MG PO
[2019-05-31 09:07] LABS: BASOPHILS 1.2 % (0-2); EOSINOPHILS 5.7 % (0-7); HEMATOCRIT 41.8 % (36.0-48.0); HEMOGLOBIN 14.2 g/dL (12-16); LYMPHOCYTES 39.3 % (15-50); MCH 32.5 pg (26.0-34.0); MCV 95.7 fL (80.0-100.0); MEAN PLATELET VOLUME 9.9 fL (7.4-10.4); MONOCYTES 6.9 % (2-11); NEUTROPHILS 46.9 % (40-80); RBC 4.37 10x6/uL (4.00-5.40); RDW 13.4 % (11.5-14.5); WBC 4.9 10x3/uL (4.8-10.8)
[2019-05-31 09:13] LABS: PLATELET COUNT 267 10x3/uL (130-400)
[2019-05-31 09:22] LABS: APTT 30.1 SECONDS (22.8-39.4); INR 0.91 (0.85-1.17); PROTIME 11.8 SECONDS (11.6-15.0)
[2019-05-31 09:32] LABS: CALC OSMOLALITY 279 mosm/kg (275-300); CALCIUM 9.3 mg/dL (8.5-10.1); CARBON DIOXIDE 28.8 mmol/L (21.0-32.0); CHLORIDE - SERUM 104 mmol/L (98-107); GLUCOSE 120 mg/dL (74-106); POTASSIUM - SERUM 3.6 mmol/L (3.5-5.1); SODIUM 140 mmol/L (136-145); UREA NITROGEN 12 mg/dL (7-18); eGFR NON AFRICAN AMERICAN 59 mL/min (90-120)
[2019-05-31 09:43] LABS: ALBUMIN 3.8 g/dL (3.4-5.0); ALKALINE PHOSPHATASE 55 U/L (46-116); ALT (SGPT) 37 U/L (10-68); BILIRUBIN - TOTAL 0.41 mg/dL (0.2-1.3); CKMB 1.4 U/L (0.0-3.6); CREATINE KINASE 148 UL (21-215); MAGNESIUM - SERUM 1.8 mg/dL (1.8-2.4); PROTEIN - SERUM 7.1 g/dL (6.4-8.2); TROPONIN-I < 0.017 ng/mL (0.000-0.060)
[2019-05-31 10:11] VITALS: Ht 162.6 cm; Wt 90.9 kg
[2019-05-31 11:01] VITALS: BP 143/74
--- NOTE | 2019-05-31 11:48 | HP ---
PATIENT: CHASE LOBO MEDICAL RECORD: [id number] ACCOUNT: [id number] LOCATION:[facility] : 55 ADMISSION DATE: 05/31/19 PCP: OMID HOYT DO HISTORY AND PHYSICAL EXAMINATION DIAGNOSES: 1. Unstable angina. 2. Coronary artery disease. 3. Previous percutaneous transluminal coronary angioplasty stent. 4. Hypertension. 5. Hyperlipidemia. 6. Family history of premature coronary artery disease. HISTORY OF PRESENT ILLNESS: Mrs. Lobo is a 63-year-old female with a past history of coronary artery disease, last cardiac stenting was done approximately 4 months ago, who presents with increasing angina times 1 month. She has had a tightness just like that of her previous angina and has been in an escalating fashion. She had severe episode last night, awoke her, resolved with multiple sublingual nitro. She is having recurrence of the episode while being in the Emergency Room now. It is a dull aching classic anginal pressure sensation across the anterior chest with radiation to her jaw. She has a history of hypertension, on lisinopril; hyperlipidemia; INTOLERANT TO STATINS in the past, hence only diet controlled at this time. PHYSICAL EXAMINATION: CONSTITUTIONAL/GENERAL APPEARANCE: Well nourished, well developed, appears stated age. EYES: Lids and conjunctivae noninjected. No discharge. No pallor. ENT: Lips within normal limit. No cyanosis. No pallor. NECK: Carotid arteries, bilateral normal upstroke. No bruits. No thrills. No jugular venous pressure or distention. CERVICAL LYMPH NODES: Nontender. Nonenlarged. THYROID: Not enlarged. No nodules. CARDIOVASCULAR: Precordial exam, nondisplaced. No heaves or pericardial thrills. Rate and rhythm, regular. Heart sounds, normal S1, normal S2. No S3, no gallop, no rub. Systolic murmur, not heard. Diastolic murmur, not heard. RESPIRATORY: Respiratory effort, unlabored. Normal curvature. No thoracic deformity. No chest wall tenderness. Percussion, resonant. Auscultation, clear. No wheezes, no rales, no rhonchi. ABDOMEN: Soft, nondistended, nontender. No abdominal pain, no vomiting and normal appetite. MUSCULOSKELETAL: No joint tenderness, normal gait, normal tone. SKIN: Warm and dry. OVERALL IMPRESSION: Unstable angina, classic anginal symptomatology in an escalating fashion in this patient with coronary artery disease and multiple ongoing risk factors. Her EKG is with no acute ST-T abnormalities, but most likely, she does have recurrent hemodynamically significant coronary artery disease. We will proceed with coronary angiography. Further care depends upon findings of the angiography. TRANSINT:[id number] Voice Confirmation ID: [id number] DOCUMENT ID: [id number] HISTORY AND PHYSICAL [id number] CHASE LOBO, ZO LUJAN at 1148 CC: [id number] DICTATION DATE: 05/31/19 1013 CONSUMER RECRUITER: 05/31/19 1101 REG [facility] [address] [place] [address]
--- NOTE | 2019-05-31 11:55 | NUR ---
PT ARRIVED BY STRETCHER. PLACED ON MONITORS. ASSESSMENT COMPLETED. VSS. FAMILY AT BEDSIDE. RAMY ROUNDED AND SPOKE WITH PT AND PT'S FAMILY.
--- NOTE | 2019-05-31 12:10 | NUR ---
RIGHT GROIN DRESSING C/D/I. NO S/S OF HEMATOMA NOTED. FAMILY AT BEDSIDE. CALL LIGHT WITHIN REACH. VSS.
--- NOTE | 2019-05-31 12:40 | NUR ---
RIGHT GROIN DRESSING C/D/I. NO S/S OF HEMATOMA NOTED. CALL LIGHT WITHIN REACH. VSS.
--- NOTE | 2019-05-31 12:50 | NUR ---
PT'S HEAD OF BED INC TO 30 DEGREES. TOLERATED WELL. PT ALERT AND ORIENTED. FAMILY AT BEDSIDE. SET UP WITH SANDWICH TRAY AND DRINK AT THIS TIME. VSS. WILL CONTINUE TO MONITOR.
--- NOTE | 2019-05-31 13:30 | NUR ---
PIV D/C'D WITH CATH TIP INTACT. TOLERATED WELL. RIGHT GROIN DRESSING C/D/I. NO S/S OF HEMATOMA NOTED. VSS. DISCUSSED DISCHARGE INSTRUCTIONS WITH PT AND PT'S FAMILY. THEY VOICED UNDERSTANDING. PT INSTRUCTED TO GET UP AND DRESSED. FAMILY AT BEDSIDE TO ASSIST.
--- NOTE | 2019-05-31 13:40 | NUR ---
PT AMBULATED TO RESTROOM. VOIDED WITHOUT DIFFICULTY. STEADY GAIT NOTED.
--- NOTE | 2019-05-31 13:45 | NUR ---
PT TAKEN DOWN TO VEHICLE BY WHEELCHAIR. NO S/S OF DISTRESS NOTED. ALL BELONGINGS AND PAPERWORK IN HAND.
--- NOTE | 2019-06-03 15:25 | DS ---
PATIENT:CHASE PAYTON :55 MEDICAL RECORD: [id number] DISCHARGE SUMMARY ADMISSION DATE: 05/31/19 DISCHARGE DATE: 05/31/19 DISCHARGE DIAGNOSES: 1. Angina. 2. Coronary artery disease. 3. Previous percutaneous transluminal coronary angioplasty stent. 4. Normal cardiac catheterization this admission. 5. Hypertension. 6. Hyperlipidemia. HOSPITAL COURSE: Ms. Payton presents with chest pain compatible with angina; however, cardiac catheterization reveals wide patency of her previously placed stent, was discharged home with no change in her medications. Follow up with [facility] as previously scheduled. TRANSINT:[id number] Voice Confirmation ID: [id number] DOCUMENT ID: [id number] ZO MCCANN MD at 1525 CC: [id number] DICTATION DATE: 05/31/19 1146 PLASTICS PRODUCTION MACHINE OPERATOR: 06/01/19 0353 DEP CLI 05/31/19 [place] [id number] [place] [address]
--- NOTE | 2019-06-03 15:25 | OP ---
PATIENT NAME: CHASE LOBO MEDICAL RECORD: [id number] :55 LOCATION:[facility] ADMISSION DATE: SURGEON: ZO MCCANN MD DATE OF OPERATION: 05/31/2019 PROCEDURES: 1. Left heart catheterization. 2. Selective coronary angiography. 3. Left ventriculogram. INDICATION: Angina and coronary artery disease. PROCEDURE IN DETAIL: After informed consent was obtained and after a detailed description of the risks, benefits as well as alternative therapies, the patient elected to proceed with angiogram and heart catheterization. The right femoral area was prepped and draped in normal sterile fashion. Right femoral artery was cannulated via modified Seldinger technique with placement of 5-Malawian sheath. All catheters exchanged through this sheath. FINDINGS: Left ventriculogram was performed in standard 30-degree VILLANUEVA view, reveals good cardiac wall motion throughout all segments. Overall ejection fraction estimated at 60%. SELECTIVE CORONARY ANGIOGRAPHY: 1. Left main is with no significant angiographic disease. 2. Left anterior descending has moderate irregularities, but no flow-limiting stenosis. 3. The left circumflex has a previously placed stent that is widely patent with no significant restenosis. No disease elsewise of the circumflex or its branches. 4. Right coronary has moderate irregularities, but no flow-limiting stenosis. OVERALL IMPRESSION: Wide patency of the previously placed stent, no disease elsewise. Evaluate noncardiac chest pain. TRANSINT:[id number] Voice Confirmation ID: [id number] DOCUMENT ID: [id number] ZO MCCANN MD at 1525 CC: [id number] DICTATION DATE: 05/31/19 1148 YEAST CULTURE OPERATOR: 05/31/19 2159 DEP CLI 05/31/19 [facility] [address] [place] [address]
== END 2019-05-31 13:45 | disposition home or self-care (01) ==
LOC: D.CATH 08:41 → D.ER 08:41 → EDSTATUS 10:31 → D.CLR 12:04 → D.CATH 13:45
PROVIDERS: Family Medicine; ATTEND Internal Medicine Interventional Cardiology
DX: I25.119 Atherosclerotic heart disease of native coronary artery with unspecified angina pectoris (principal); R07.9 Chest pain, unspecified; I10 Essential (primary) hypertension; Z95.5 Presence of coronary angioplasty implant and graft

== ENCOUNTER → 2019-08-24 11:03 | Outpatient (CLI) | payer OTHER ==
[2019-05-31 10:11] VITALS: BMI 34.4
--- NOTE | ~2019-08-24 | EC ---
PATIENT:CHASE LOBO DATE OF SERVICE: 08/24/19 SEX: F MEDICAL RECORD: [id number] DATE OF : 55 [facility] AGE OF PATIENT: 63 ADMISSION DATE: 08/24/19 REFERRING PHYSICIAN: INTERPRETING PHYSICIAN: ZO KENNY MD ECHOCARDIOGRAM REPORT ECHO CHARGES 4 ECHO COMPLETE Date: 08/24/19 CLINICAL DIAGNOSIS: CAD/ASSESS EF AND VALVES ECHOCARDIOGRAPHIC MEASUREMENTS (adult normal given) AC root (d.<3.7cm) 2.9 cm LV Septum d (<1.2 cm> 1.3 cm Valve Excursion 1.6 cm LV Septum (systole) 1.5 cm Left Atria (s.<4.0cm> 3.9 cm LVPW d(<1.2cm) 1.5 cm RV (d.<2.3cm) 3.4 cm LVPW (sytole) 1.7 cm LV diastole(<5.6CM) 4.0 cm MV E-F(>70mm/sec) cm LV systole 2.6 cm LVOT Diameter 1.7 cm MV exc.(>10mm) 1.4 cm Est.ejection fraction (50-75%) % DOPPLER: LVIT cm/sec A 76.0 cm/sec E 64.0 cm/sec LA cm/sec RVSP 27 mmHg LVOT 82 cm/sec AOP1/2T m/s Asc. Ao 121 cm/sec RVOT 61 cm/sec RA cm/sec PA 100 cm/sec AV Gradient Peak 5.83 mmHg AV Mean 2.91 mmHg AV Area 1.6 cm MV Gradient Peak 3.89 mmHg MV Mean 1.46 mmHg MV Area cm COMMENTS: Interpretative Dancer: 2 MCKENZIE HOLMAN Pool Cleaner: 1 Dr. Kenny TAPE# PACS Pericardial Effusion N DATE OF SERVICE: FINDINGS: 1. Left ventricular chamber size is within normal limits. Left ventricular systolic function is normal at 60%. 2. Left atrium, right atrium, and right ventricular chamber sizes are within normal limits. 3. Valvular structures have normal structure and motion. 4. Doppler interrogation reveals mild mitral regurgitation, mild tricuspid regurgitation, no other valvular insufficiency or stenosis. Pulmonary systolic ECHOCARDIOGRAM REPORT [id number] CHASE LOBO pressure is estimated at 27 mmHg. 5. No evidence of pericardial effusion or left ventricular thrombus. TRANSINT:[id number] Voice Confirmation ID: [id number] DOCUMENT ID: [id number] ZO KENNY MD CC: [id number] DICTATION DATE: 08/25/19 1221 CIRCULATION CLERK: 08/25/19 1518 DEP CLI 08/24/19 [facility] [address] [id number]
== END | disposition home or self-care (01) ==
LOC: D.HCCECHO 11:03
PROVIDERS: ATTEND Internal Medicine Interventional Cardiology
DX: I25.10 Atherosclerotic heart disease of native coronary artery without angina pectoris (principal)

== ENCOUNTER 2020-09-12 17:35 | Observation (INO) | payer OTHER ==
[~2020-09-12] VITALS: Ht 162.6 cm; Wt 95.1 kg
--- NOTE | ~2020-09-12 | HEMODYNAMI ---
PATIENT:CHASE LOBO MEDICAL RECORD: [id number] : 55 LOCATION:D. D.2119 [facility]# [id number] ADMISSION DATE: 09/12/20 Generatedon:112:09 Patient name: CHASE LOBO Patient #: [id number] SSN: [id number] : 1955 Date of study: 09/13/2020 Page: Of Hemodynamic Procedure Report Patient Data Patient Demographics Procedure consent was obtained First Name: CHASE Gender: Female Last Name: YAMIL : 1955 [facility] Initial: HEMANTH Age: 64 year(s) Patient #: [id number] Race: SSN: [id number] Additional ID: [id number] Contact details [address]: [address] [place] [address] rd State: [place] City: [place] Zip code: [address] Past Medical History Allergies Allergen Reaction Date Comments Reported Other allergy 02/09/2019 PCN, Codeine Other allergy 05/31/2019 PCN, CODEINE Other allergy 09/13/2020 PCN, Codeine Admission Admission Data Admission Date: 09/12/2020 Admission Time: 20:58 Room #: D.2119 Lab Results Lab Result Date: 09/13/2020 Lab Result Time: 0:00 Biochemistry Name Units Result Min Max BUN mg/dl 15 --(--*-)-- 7 18 Creatinine mg/dl 1 --(--*-)-- 0.6 1.3 eGFR ml/min 59 *-(----)-- 90 120 NONAFRICAN CBC Name Units Result Min Max Hemoglobin g/dl 13.4 -*(----)-- 13.5 17.5 Procedure Procedure Types Cath Procedure Diagnostic Procedure LHC LHC w/Coronaries Procedure Description Procedure Date Procedure Date: 09/13/2020 Procedure Start Time: 11:59 Procedure End Time: 12:08 Procedure Staff Name Function Toan Kan MD Performing Physician Nneka Sanchez RT Monitor Xin Bruna RT Scrub Saad Ocasio RN Nurse Procedure Data Cath Procedure Fluoroscopy Diagnostic fluoroscopy Total fluoroscopy Time: 0.9 time: 0.9 min min Diagnostic fluoroscopy Total fluoroscopy dose: 270 dose: 270 mGy mGy Contrast Material Contrast Material Type Amount (ml) Isovue 300 47 Entry Location Entry Primary Successful Side Size Upsize Upsize Entry Closure Succes sful Closure Location (Fr) 1 (Fr) 2 (Fr) Remarks Device Remarks Femoral Right 5 Fr Exoseal artery Estimated blood loss: 10 ml Diagnostic catheters Device Type Used For End Catheter Placement MULTIPACK JL 4.0 5Fr Procedure catheter MULTIPACK 3DRC 5Fr Procedure catheter MULTIPACK Pigtail 5 Fr Procedure catheter Procedure Complications No complications Procedure Medications Medication Administration Route Dosage 0.9% NaCl I.V. 100 ml/hr Oxygen etCO2 Nasal cannula 2 l/min Heparin Flush Bag added to field 2 bags (1000units/500ml NS) Lidocaine 2% added to field 20 Versed I.V. 1 mg Fentanyl I.V. 50 mcg Versed I.V. 1 mg Fentanyl I.V. 50 mcg Hemodynamics Rest HGB: 13.4 (g/dl) Heart Rate: 73 (bpm) Pressure Samples Time Site Value (mmHg) Purpose Heart Use Rate(bpm) 12:05 LV 218/49,60 Snapshot 75 12:05 AO 138/52(93) Pullback 78 Gradients Valve Time Site Site 2 Mean SEP/DFP Peak To Heart Use 1 (mmHg) (sec/min) Peak Rate (mmHg) (bpm) Aortic 12:05 LV AO 32 39 78 138/52(93) Calculations Valve P-P Mean Valve Index Valve Source Name Gradient Area Flow (cm2) Aortic 32 32 Snapshots Pre Cath Intra NCS Post Cath Vital Signs Time Heart Resp SPO2 etCO2 NIBP (mmHg) Rhythm Pain Sedation Rate (ipm) (%) (mmHg) Status Level (bpm) 11:53:58 74 14 99 43.3 173/98(145) NSR 0 (11) 10(A) , No pain 11:58:20 71 11 99 0 143/78(125) NSR 0 (11) 10(A) , No pain 12:02:45 72 11 88 1.5 139/78(108) NSR 0 (11) 10(A) , No pain 12:07:09 80 12 97 0 141/81(112) NSR 0 (11) 10(A) , No pain Medications Time Medication Route Dose Verified Delivered Reason Notes Eff ectiveness by by 11:54:34 0.9% NaCl I.V. 100 Saad Saad Per ml/hr Amarjit Ocasio physician RN RN 11:54:43 Oxygen etCO2 2 Saad Saad for low 02 Nasal l/min Lorigan Lorigan sats cannula RN RN 11:54:52 Heparin Flush added 2 Saad Saad used for Bag to bags Lorigan Lorenma procedure (1000units/500ml field RN RN NS) 11:55:01 Lidocaine 2% added 20ml Saad Saad for local to vial Lorigan Lorigan anesthetic field RN RN 11:56:06 Versed I.V. 1 mg Saad Saad for Lorigan Lorigan sedation RN RN 11:56:14 Fentanyl I.V. 50 Saad Saad for mcg Lorigan Lorigan sedation RN RN 12:00:37 Versed I.V. 1 mg Saad Saad for Lorigan Lorigan sedation RN RN 12:00:43 Fentanyl I.V. 50 Saad Saad for mcg Lorigan Lorigan sedation RN incident response analyst Log Time Note 11:26:49 Informed consent obtained and on chart 11:27:04 Procedure Status Urgent Heart Cath (IP). 11:27:05 Time tracking: Regular hours (M-F 7:00 - 5:00) 11:27:09 Plan of Care:Hemodynamics will remain stable., Cardiac rhythm will remain stable., Comfort level will be maintained., Respiratory function will remain adequate., Patient/ family verbilizes understanding of procedure., Procedure tolerated without complication., Recovers from procedure without complications.. 11:34:57 Saad Ocasio RN sent for patient. Start room use. 11:52:33 Patient received from Med II to CCL 2 Alert and oriented. Tansferred to table in Supine position. 11:52:35 Warm blankets applied, and mary hugger turned on for patient comfort. 11:52:36 Correct patient and procedure confirmed by team. 11:52:36 ECG and BP/O2 sat monitors applied to patient. 11:52:39 Vital chart was started 11:52:43 Baseline sample Acquired. 11:52:47 Rhythm: sinus rhythm 11:52:48 Full Disclosure recording started 11:53:35 H&P Date Dictated: 09/13/2020 Within 30 days and on chart.. 11:53:37 Pre-procedure instructions explained to patient. 11:53:39 Family in patients room. 11:53:41 Patient NPO since Midnight. 11:54:00 Patient allergic to Other allergyPCN, Codeine 11:54:02 Is the patient allergic to Iodine/contrast media? No. 11:54:04 Was the patient premedicated? Yes 11:54:09 Patient diabetic? No. 11:54:12 Snore? Yes 11:54:13 Sleep apnea? No 11:54:21 Patient pain scale 2/10 ?. 11:54:27 IV patent on arrival in left forearm with 0.9% NaCl at [facility]. 11:54:34 0.9% NaCl 100 ml/hr I.V. was administered by Saad Ocasio RN; Per physician; Verbal order read back and verified. 11:54:43 Oxygen 2 l/min etCO2 Nasal cannula was administered by Saad Ocasio RN; for low 02 sats; Verbal order read back and verified. 11:54:52 Heparin Flush Bag (1000units/500ml NS) 2 bags added to field was administered by Saad Ocasio RN; used for procedure; Verbal order read back and verified. 11:55:01 Lidocaine 2% 20ml vial added to field was administered by Saad Ocasio RN; for local anesthetic; Verbal order read back and verified. 11:55:19 Lab Result : BUN 15 mg/dl 11:55:19 Lab Result : Creatinine 1 mg/dl 11:55:19 Lab Result : eGFR NONAFRICAN 59 ml/min 11:55:19 Lab Result : Hemoglobin 13.4 g/dl 11:55:25 Lab results completed and on chart. 11:55:30 Right groin area was prepped with chlora-prep and draped in sterile fashion 11:55:31 Alarms reviewed by R. N. 11:55:31 Sharps counted by scrub and verified by R.N. 11:55:36 --------ALL STOP TIME OUT------ 11:55:37 Final Timeout: patient, procedure, and site verified with staff and physician. All members of the team are in agreement. 11:55:41 Right groin site verified by team. 11:55:46 Fire Safety Assessment: A--An alcohol-based skin anteseptic being used preoperatively., C--Open oxygen or nitrous oxide is being used., D--An ESU, laser, or fiber-optic light is being used. 11:56:06 Versed 1 mg I.V. was administered by Saad Ocasio RN; for sedation; Verbal order read back and verified. 11:56:09 Physical assessment completed. ASA score P 3 - A patient with severe systemic disease as per Toan Kan MD. 11:56:14 Fentanyl 50 mcg I.V. was administered by Saad Ocasio RN; for sedation; Verbal order read back and verified. 11:56:19 2) 60-89 Mildly reduced kidney function, and other findings (as for stage 1) point to kidney disease. 11:56:26 Maximum allowable contrast dose (3.7 X eGFR X 0.75)154 ml. 11:56:30 Sedation plan: IV Moderate Sedation Medication:Versed, Fentanyl 11:56:34 Use device set Femoral Dx 11:56:35 ACIST Syringe (58422) opened to sterile field. 11:56:36 Bag Decanter (2002S) opened to sterile field. 11:56:36 Medline Cath Pack ([id number]) opened to sterile field. 11:56:38 ACIST Hand Control (39908) opened to sterile field. 11:56:38 ACIST Manifold (83547) opened to sterile field. 11:56:38 DIAGNOSTIC Multipack 5Fr catheter set (UC8113) opened to sterile field. 11:56:40 Tegaderm 4 x 4 (1626W) opened to sterile field. 11:56:42 SHEATH 5FR [place] (HMA097) opened to sterile field. 11:56:42 EMERALD Guide Wire (811-323) opened to sterile field. 11:58:54 Zero performed for pressure channel P1 11:59:08 Zero performed for pressure channel P1 11:59:50 Procedure started. 11:59:58 Local anesthetic to right femoral artery with Lidocaine 2% by Toan Kan MD.INITIAL ACCESS ONLY 12:00:10 A 5 Fr sheath was inserted into the Right Femoral artery 12:00:19 J wire advanced. 12:00:37 Versed 1 mg I.V. was administered by Saad Ocasio RN; for sedation; Verbal order read back and verified. 12:00:43 Fentanyl 50 mcg I.V. was administered by Saad Ocasio RN; for sedation; Verbal order read back and verified. 12:01:20 A MULTIPACK JL 4.0 5Fr catheter was advanced over the wire and used for Procedure. 12:01:23 LCA angiography performed. 12:04:40 A MULTIPACK 3DRC 5Fr catheter was advanced over the wire and used for Procedure. 12:04:46 RCA angiography performed. 12:04:48 Catheter removed. 12:04:58 A MULTIPACK Pigtail 5 Fr catheter was advanced over the wire and used for Procedure. 12:05:17 LV gram done using VILLANUEVA 12:05:26 EF : 55 % 12:05:29 Catheter removed. 12:05:33 EXOSEAL 5Fr (EX500) opened to sterile field. 12:05:47 Sheath removed intact; hemostasis achieved with Exoseal to the Right Femoral artery. 12:05:52 Procedure ended.(Physican Out) 12:06:07 Fluoroscopy time 00.90 minutes. 12:06:11 Fluoroscopy dose: 270 mGy 12:06:11 Flurop Dose total: 270 12:06:16 Dose Area Product 56481 mGy/cm. 12:06:20 Contrast amount:Isovue 300 47ml. 12:06:32 Maximum allowable dose exceeded? No. 12:06:35 Insertion/operative site no bleeding no hematoma. 12:06:39 Post-op/insertion site Right Femoral artery dressed using a 4 x 4 and Tegaderm. 12:06:44 Post Procedure Pulses reassessed and unchanged 12:06:48 Post-procedure physical assessment completed. ASA score P 2 - A patient with mild systemic disease as per Toan Kan MD. 12:06:52 Post procedure rhythm: unchanged. 12:06:55 Estimated blood loss: 10 ml 12:06:58 Post procedure instruction explained to patient.Patient verbalizes understanding. 12:07:03 Procedure and supply charges have been captured, reviewed, submitted and are correct. 12:07:57 Procedure Complication : No complications 12:08:00 Vital chart was stopped 12:08:02 [facility] Findings: mild to moderate CAD (<70%) 12:08:05 See physician's report for complete and final results. 12:08:09 Report given to Med II. 12:08:12 Patient transfered to [facility] II with Bed. 12:08:14 Procedure ended. 12:08:14 Full Disclosure recording stopped 12:08:20 End room use (Document Last) 12:08:59 End room use (Document Last) 12:09:23 End room use (Document Last) Device Usage Item Name Manufacture Quantity Catalog Hospital Part Current Minimal L ot# / Number Charge Number Stock Stock Serial# Code ACIST Acist 1 93702 [id number] 304861 476993 20 Syringe Medical (01560) Systems Inc Bag Microtek 1 2001S 257754 80443 782154 5 Decanter Medical Inc. () Medline Medline 1 [id number] 642830 08446 700969 5 Cath Pack ([id number]) ACIST Hand Acist 1 69097 042890 989361 549108 5 Control Medical (28681) Systems Inc ACIST Acist 1 08876 037262 153809 952173 5 Manifold Medical (19530) Systems Inc DIAGNOSTIC Cardinal 1 [id number] 123488 46917 747314 30 Multipack Health 5Fr catheter set (OP7948) Tegaderm 4 3M 1 1626W 686912 109316 402024 5 x 4 (1626W) SHEATH 5FR Terumo 1 [id number] 482883 172455 663399 5 [place] (BWU262) EMERALD Cardinal 1 502-455 297380 422602 686699 5 Guide Wire [facility] (502-455) MULTIPACK Cardinal 1 080078 5 JL 4.0 5Fr Health catheter MULTIPACK Cardinal 1 865685 5 3DRC 5Fr Health catheter MULTIPACK Cardinal 1 227389 5 Pigtail 5 Health Fr catheter EXOSEAL 5Fr Cardinal 1 EX500 156482 743105 436569 10 (EX500) Health Signature Audit [place] Stage Time Signature Unsigned Intra-Procedure 09/13/2020 Nneka Sanchez 12:08:59 PM RT(R) Intra-Procedure 09/13/2020 Saad 12:09:23 PM Amarjit GRIFFIN Intra-Procedure 09/13/2020 Toan Weiss 12:09:41 PM Michael LUJAN Signatures Performing Physician : Signature : Toan Kan MD Date : Time : Monitor : Nneka Daniel Signature : RT Date : Time : Nurse : Saad Lorigan Signature : RN Date : Time : [address] [place] [address]
[2020-09-12 18:27] LABS: BASOPHILS 1.2 % (0-2); EOSINOPHILS 3.4 % (0-7); HEMATOCRIT 40.6 % (36.0-48.0); HEMOGLOBIN 13.7 g/dL (12-16); LYMPHOCYTE ABS# 2.78 10x3/uL (1.18-3.74); LYMPHOCYTES 47.8 % (15-50); MCH 31.9 pg (26.0-34.0); MCHC 33.7 g/dL (31.0-37.0); MCV 94.6 fL (80.0-100.0); NEUTROPHIL ABS# 2.41 10x3/uL (1.56-6.13); NEUTROPHILS 41.6 % (40-80); PLATELET COUNT 253 10x3/uL (130-400); RBC 4.29 10x6/uL (4.00-5.40); RDW 13.4 % (11.5-14.5); WBC 5.8 10x3/uL (4.8-10.8)
[2020-09-12 18:37] LABS: APTT 30.3 SECONDS (22.8-39.4); INR 1.01 (0.85-1.17); PROTIME 12.3 SECONDS (11.6-15.0)
[2020-09-12 18:50] LABS: CALC OSMOLALITY 282 mosm/kg (275-300); CALCIUM 9.2 mg/dL (8.5-10.1); CARBON DIOXIDE 29.8 mmol/L (21.0-32.0); CHLORIDE - SERUM 103 mmol/L (98-107); CREATININE - SERUM 1.1 mg/dL (0.6-1.3); GLUCOSE 155 mg/dL (74-106); POTASSIUM - SERUM 3.6 mmol/L (3.5-5.1); SODIUM 140 mmol/L (136-145); UREA NITROGEN 15 mg/dL (7-18); eGFR NON AFRICAN AMERICAN 53 mL/min (90-120)
[2020-09-12 19:00] VITALS: BP 174/76
[2020-09-12 19:04] LABS: ALBUMIN 3.9 g/dL (3.4-5.0); ALKALINE PHOSPHATASE 56 U/L (30-120); ALT (SGPT) 53 U/L (10-68); AMYLASE - SERUM 30 U/L (25-115); BILIRUBIN - TOTAL 0.21 mg/dL (0.2-1.3); CKMB 1.7 U/L (0.0-3.6); CREATINE KINASE 230 UL (21-215); LIPASE 119 U/L (73-393); MAGNESIUM - SERUM 1.9 mg/dL (1.8-2.4); PROTEIN - SERUM 6.9 g/dL (6.4-8.2); TROPONIN-I < 0.017 ng/mL (0.000-0.060)
[2020-09-12 19:19] VITALS: BP 129/81
[2020-09-12 20:31] VITALS: BP 134/67
[2020-09-12] MEDS ORDERED: LISINOPRIL-HCT1 EAC8 PO (22:43)
[2020-09-12] MEDS ORDERED: PRAVACHOL40 MG PO (22:44)
[2020-09-12 23:01] VITALS: BP 133/60; BMI 34.4; BMI 35.9
--- NOTE | 2020-09-12 23:05 | NUR ---
RECIEVED REPORT FROM ER. ARRIVED TO FLOOR IN W/C WITH SPOUSE AT HER SIDE. ALERT AND ORIENTED X4. UP AD RON. ASSESSMENT COMPLETED.
--- NOTE | 2020-09-12 23:20 | NUR ---
C/O CHEST PAIN AT 1. REQUESTED MORPHINE. MED GIVEN PER ORDERS. AFTER IT WAS GIVEN C/O WORSEING CHEST NECK PAIN. EKG COMPLETED AND V/S WNL. REPOSITIONED HER AND RAISED HOB. SHE HAD EATEN A SANDWICH BOX AND WAS LAYIING FLAT. HAS A HX OF GERD PER PT. SHE THEN STATED IT WAS BETTER. EXPLAINED SHE PROBABLY NEEDED TO SIT UP AT LEAST 30MIN AFTER A MEAL D/T HER GERD. VERBALLY ACKNOWLEDGED.
[2020-09-13 00:55] LABS: CKMB 1.6 U/L (0.0-3.6); CREATINE KINASE 203 UL (21-215); TROPONIN-I < 0.017 ng/mL (0.000-0.060)
[2020-09-13 04:00] VITALS: BP 131/79
[2020-09-13 06:48] LABS: EOSINOPHILS 3.5 % (0-7); HEMOGLOBIN 13.4 g/dL (12-16); IMMATURE GRANULOCYTES 0.2 % (0-5); LYMPHOCYTE ABS# 1.74 10x3/uL (1.18-3.74); LYMPHOCYTES 33.4 % (15-50); MCH 32.1 pg (26.0-34.0); MCHC 33.5 g/dL (31.0-37.0); MCV 95.7 fL (80.0-100.0); MEAN PLATELET VOLUME 9.9 fL (7.4-10.4); MONOCYTES 7.5 % (2-11); NEUTROPHIL ABS# 2.84 10x3/uL (1.56-6.13); NEUTROPHILS 54.4 % (40-80); PLATELET COUNT 239 10x3/uL (130-400); RBC 4.18 10x6/uL (4.00-5.40); RDW 13.4 % (11.5-14.5); WBC 5.2 10x3/uL (4.8-10.8)
[2020-09-13 07:54] VITALS: BP 154/71
[2020-09-13 07:59] LABS: ALBUMIN 3.5 g/dL (3.4-5.0); ALKALINE PHOSPHATASE 65 U/L (30-120); BILIRUBIN - TOTAL 0.64 mg/dL (0.2-1.3); CALC OSMOLALITY 282 mosm/kg (275-300); CALCIUM 8.9 mg/dL (8.5-10.1); CARBON DIOXIDE 29.2 mmol/L (21.0-32.0); CHLORIDE - SERUM 105 mmol/L (98-107); CKMB 1.2 U/L (0.0-3.6); CREATINE KINASE 167 UL (21-215); GLUCOSE 109 mg/dL (74-106); MAGNESIUM - SERUM 1.8 mg/dL (1.8-2.4); PHOSPHOROUS 4.4 mg/dL (2.5-4.9); POTASSIUM - SERUM 3.8 mmol/L (3.5-5.1); PROTEIN - SERUM 6.5 g/dL (6.4-8.2); SODIUM 141 mmol/L (136-145); UREA NITROGEN 15 mg/dL (7-18); eGFR NON AFRICAN AMERICAN 59 mL/min (90-120)
[2020-09-13 08:00] LABS: ALT (SGPT) 116 U/L (10-68); TROPONIN-I < 0.017 ng/mL (0.000-0.060)
[2020-09-13 08:37] VITALS: Ht 162.6 cm; Wt 95.1 kg
[2020-09-13 09:03] LABS: CHOL - HDL RATIO 4.6 ratio (2.3-4.1); LDL-HDL RATIO 2.9 ratio (1.5-3.5)
[2020-09-13 11:45] VITALS: BP 149/76
[2020-09-13 13:01] LABS: BILIRUBIN NEGATIVE (NEGATIVE); KETONE NEGATIVE (NEGATIVE); NITRITE NEGATIVE (NEGATIVE)
[2020-09-13 13:02] LABS: BACTERIA FEW HPF (NONE SEEN); SQUAMOUS EPITHELIAL 0-5 HPF (0-4); WHITE CELLS - URINE RARE HPF (0-4)
[2020-09-13 15:07] VITALS: BP 143/76
[2020-09-13 18:15] VITALS: BP 148/76
--- NOTE | 2020-09-13 19:13 | NUR ---
RECIEVED LAYING IN BED WITH EYES OPEN. ALERT AND ORINTED X4. UP AD RON. DSG TO RT GROIN CDI. O2 @ 2 LITERS PER N/C IN PLACE. IV TO LT AC SL. DENIES ANY NEEDS AT THIS TIME.
[2020-09-13 22:37] VITALS: BP 152/79
[2020-09-14 03:00] VITALS: BP 179/79
[2020-09-14 06:50] LABS: BASOPHILS 0.4 % (0-2); EOSINOPHILS 1.9 % (0-7); HEMATOCRIT 39.1 % (36.0-48.0); HEMOGLOBIN 12.8 g/dL (12-16); IMMATURE GRANULOCYTES 0.1 % (0-5); LYMPHOCYTE ABS# 1.48 10x3/uL (1.18-3.74); LYMPHOCYTES 18.8 % (15-50); MCH 31.4 pg (26.0-34.0); MCHC 32.7 g/dL (31.0-37.0); MCV 96.1 fL (80.0-100.0); MEAN PLATELET VOLUME 10.4 fL (7.4-10.4); MONOCYTES 5.7 % (2-11); NEUTROPHIL ABS# 5.77 10x3/uL (1.56-6.13); NEUTROPHILS 73.1 % (40-80); PLATELET COUNT 224 10x3/uL (130-400); RBC 4.07 10x6/uL (4.00-5.40); RDW 13.2 % (11.5-14.5)
[2020-09-14 06:57] LABS: WBC 7.9 10x3/uL (4.8-10.8)
[2020-09-14 07:27] LABS: CALCIUM 8.9 mg/dL (8.5-10.1); CARBON DIOXIDE 28.6 mmol/L (21.0-32.0); CREATININE - SERUM 0.9 mg/dL (0.6-1.3); MAGNESIUM - SERUM 1.9 mg/dL (1.8-2.4); PHOSPHOROUS 3.6 mg/dL (2.5-4.9); POTASSIUM - SERUM 3.6 mmol/L (3.5-5.1)
[2020-09-14 07:56] VITALS: BP 124/64
[2020-09-14 11:23] VITALS: BP 134/69
[2020-09-14] MEDS ORDERED: CARAFATE1 G PO (12:06)
--- NOTE | 2020-09-14 14:37 | NUR ---
IV AND TELEMETRY DCD. DC PLANS GIVEN. UNDERSTANDING VOICED. ESCORTED TO CAR BY W/C.
--- NOTE | 2020-09-15 09:58 | OP ---
PATIENT NAME: CHASE LOBO MEDICAL RECORD: [id number] :55 LOCATION:D.M2 D.9 ADMISSION DATE:09/12/20 SURGEON: SAMSON EPPS MD DATE OF OPERATION: 09/13/2020 PROCEDURE: Left heart catheterization, selective coronary angiography, right femoral artery approach. CATHETERS: A 5-Malay sheath, 5/4 left and right Carlos, 5/4 pig. The procedure was well tolerated. The patient was returned to the bui. Sheath removed. ExoSeal device was placed. FINDINGS: Left ventriculography in 30-degree VILLANUEVA view; normal wall motion, normal systolic function. CORONARY ANATOMY: LEFT MAIN: Left main is free of disease. LAD: Free of disease in the diagonal system. CIRCUMFLEX: Previously placed stent is widely patent. No progression of cherokee disease. RIGHT CORONARY ARTERY: Dominant, again free of disease. IMPRESSION: Normal left ventricular systolic function. No evidence of restenosis. No progression of cherokee disease. TRANSINT:[id number] Voice Confirmation ID: [id number] DOCUMENT ID: [id number] SAMSON EPPS MD at 0958 CC: [id number] DICTATION DATE: 09/13/20 1210 SOLID WASTE TECHNICIAN: 09/13/20 1744 DIS IN 09/14/20 [place] [place] [address]
== END 2020-09-14 14:38 | disposition home or self-care (01) ==
LOC: D.ER 17:35 → D.M2 20:58 → OBSVTIME 20:58 → D.M2 20:58
PROVIDERS: Emergency Medicine; Family Medicine; Internal Medicine Interventional Cardiology; ADMIT Emergency Medicine; ATTEND Emergency Medicine
DX: R07.9 Chest pain, unspecified (principal); N18.9 Chronic kidney disease, unspecified; E11.22 Type 2 diabetes mellitus with diabetic chronic kidney disease; E11.65 Type 2 diabetes mellitus with hyperglycemia; I12.9 Hypertensive chronic kidney disease with stage 1 through stage 4 chronic kidney disease, or unspecified chronic kidney disease; E78.5 Hyperlipidemia, unspecified; K21.9 Gastro-esophageal reflux disease without esophagitis; I20.9 Angina pectoris, unspecified